=== PATIENT | female | born 1950 ===

== ENCOUNTER 2024-02-27 13:31 | Emergency (ER) | payer MEDICARE, OTHER ==
[2024-02-27] MEDS: Cyclobenzaprine 10 MG Tab PO ONE (16:14)
== END 2024-02-27 16:22 | disposition home or self-care (01) ==
LOC: JD.ED 13:31
DX: S82.892A Other fracture of left lower leg, initial encounter for closed fracture (principal); Z88.8 Allergy status to other drugs, medicaments and biological substances; W00.9XXA Unspecified fall due to ice and snow, initial encounter; Y93.01 Activity, walking, marching and hiking
CPT/HCPCS: 73600; 99284; A9270; 99283